=== PATIENT | male | born 1975 | race Caucasian/White ===

== ENCOUNTER 2017-07-30 09:53 | Outpatient (CLI) | payer OTHER | END 2017-07-30 09:54 | disposition home or self-care (01) | LOC: BICMRI 09:53 | PROVIDERS: ATTEND Family Medicine | DX: M47.26 Other spondylosis with radiculopathy, lumbar region (principal); M51.27 Other intervertebral disc displacement, lumbosacral region | CPT/HCPCS: 72148 ==

== ENCOUNTER 2021-07-11 09:33 | Outpatient (CLI) | payer BC | END 2021-07-11 09:34 | disposition home or self-care (01) | LOC: MRI 09:33 | PROVIDERS: ATTEND Specialist | DX: M47.26 Other spondylosis with radiculopathy, lumbar region (principal); M51.27 Other intervertebral disc displacement, lumbosacral region; M48.07 Spinal stenosis, lumbosacral region | CPT/HCPCS: 72148 ==

== ENCOUNTER 2021-11-08 07:45 | Outpatient (CLI) | payer BC ==
[2021-11-08 08:15] LABS: Hemoglobin 16.5 g/dL (13.5-17.5); Mean Corpuscular HGB CONC 34.2 g/dL (32.0-36.0); Mean Corpuscular Hemoglobin 32.4 pg (27.0-33.0); Mean Corpuscular Volume 94.5 fl (81.2-95.1); Platelet Count 197 10x3/uL (150-450); RBC Distribution Width 12.9 % (11.5-14.5); White Blood Cell (WBC) Count 7.7 10x3/uL (3.5-10.5)
[2021-11-08 08:40] LABS: INR-International Normal Ratio 0.9; PTT 30.8 sec (22.0-33.0); Prothrombin Time 9.9 sec (9.5-12.1)
[2021-11-08 08:42] LABS: Anion Gap 18 mmol/L (10-20); BUN (Urea Nitrogen) 11 mg/dL (8.9-20.6); Calc. Creatinine Clearance 0 mL/min (70-130); Calcium 9.5 mg/dL (7.8-10.44); Carbon Dioxide 22 mmol/L (22-29); Chloride 103 mmol/L (98-107); Glucose 96 mg/dL (70-105); Potassium 4.1 mmol/L (3.5-5.1); Sodium 139 mmol/L (136-145)
[2021-11-09 00:47] LABS: SARS-CoV-2 PCR by NAA Not Detected (NotDetected)
== END 2021-11-08 07:46 | disposition home or self-care (01) ==
LOC: LABBT 07:45
PROVIDERS: ATTEND Surgery
DX: Z01.818 Encounter for other preprocedural examination (principal); M51.16 Intervertebral disc disorders with radiculopathy, lumbar region; M48.062 Spinal stenosis, lumbar region with neurogenic claudication; Z20.822 Contact with and (suspected) exposure to COVID-19
CPT/HCPCS: 80048; 85027; 85610; 85730; 93005; 93010; U0003; U0005

== ENCOUNTER 2021-11-11 05:45 | Observation (INO) | payer BC ==
[2021-11-09 10:27] VITALS: BMI 30.8
[2021-11-11] MEDS ORDERED: Thrombin 5000 UNITS/5 ML VIAL ONE (06:59)
[2021-11-11] MEDS ORDERED: Fentanyl 250 MCG/5 ML VIAL ONE (07:09)
[2021-11-11] MEDS ORDERED: ceFAZolin (BATCH) 2 GM/100 ML BAG ONE (07:14)
[2021-11-11] MEDS ORDERED: Midazolam HCl 2 mg/2 ml Vial ONE (07:18)
[2021-11-11] MEDS ORDERED: Ketorolac Tromethamine 30 MG/ML VIAL ONE (07:28)
[2021-11-11] MEDS ORDERED: PHENYLEPHRINE-NS 100 MCG/ML 10 ML SYRINGE ONE (07:28)
[2021-11-11] MEDS ORDERED: PROPOFOL 200 MG/20 ML VIAL ONE (07:28)
[2021-11-11] MEDS ORDERED: Rocuronium Bromide 10 MG/ML (10ML VIAL) ONE (07:28)
[2021-11-11] MEDS ORDERED: Dexamethasone 20 MG/5 ML VIAL ONE (07:28)
[2021-11-11] MEDS ORDERED: Lidocaine 1% PF 5 ML VIAL ONE (07:28)
[2021-11-11] MEDS ORDERED: Glycopyrrolate 0.2 MG/ML 5 ML SYRINGE ONE (07:28)
[2021-11-11] MEDS ORDERED: Ondansetron PF 4 MG/2 ML Vial ONE (07:28)
[2021-11-11] MEDS ORDERED: PACU-Morphine 4MG/ML VIAL SLOW IVP PRN (09:46)
[2021-11-11] MEDS ORDERED: Morphine Sulfate 2 MG/ML SYRINGE SLOW IVP PRN (09:46)
[2021-11-11] MEDS ORDERED: Meperidine HCl/PF 25 MG/ML VIAL SLOW IVP PRN (09:46)
[2021-11-11] MEDS ORDERED: Promethazine HCl 25 MG/ML VIAL IVPB PRN (09:46)
[2021-11-11] MEDS ORDERED: HYDROmorphone 2 MG/ML VIAL SLOW IVP PRN (09:46)
[2021-11-11] MEDS ORDERED: Promethazine HCl 25 MG/ML VIAL IM PRN (09:46)
[2021-11-11] MEDS ORDERED: Ondansetron HCl/PF 4 MG/2 ML Vial IVP PRN (09:46)
[2021-11-11] MEDS ORDERED: Ketorolac Tromethamine 30 MG/ML VIAL IVP PRN (09:46)
[2021-11-11] MEDS ORDERED: Acetaminophen/Codeine 30-300mg Tablet PO PRN (10:03)
[2021-11-11] MEDS ORDERED: traMADol HCl 50 MG TAB PO PRN (10:03)
[2021-11-11] MEDS ORDERED: Acetaminophen 325 MG TAB PO PRN (10:03)
[2021-11-11] MEDS ORDERED: Ondansetron PF 4 MG/2 ML Vial IVP PRN (10:03)
[2021-11-11] MEDS ORDERED: Morphine 2 MG/ML VIAL SLOW IVP PRN (10:03)
[2021-11-11] MEDS ORDERED: hydrALAZINE 20 MG/ML VIAL SLOW IVP PRN (10:06)
[2021-11-11] MEDS ORDERED: tiZANidine HCl 4 MG TAB PO PRN (10:06)
[2021-11-11] MEDS ORDERED: Docusate 100 MG CAP PO PRN (10:06)
[2021-11-11] MEDS ORDERED: Polyethylene Glycol 3350 17 GM Packet PO PRN (10:06)
[2021-11-11] MEDS ORDERED: Fentanyl 100 MCG/2 ML VIAL ONE ×2 (10:16→10:49)
[2021-11-11] MEDS: Sodium Chloride 0.9% 1,000 ML IV SCH ×2 (12:10→23:49)
[2021-11-11] MEDS: HYDROcodone/Acetaminophen 7.5/325 mg Tablet PO PRN ×2 (12:34→20:02)
[2021-11-11] MEDS: ceFAZolin (BATCH) 2 GM in Premix Bag 1 BAG IVPB SCH ×2 (15:54→23:50)
[2021-11-12 05:23] VITALS: TEMP 98.3
[2021-11-12] MEDS: HYDROcodone/Acetaminophen 7.5/325 mg Tablet PO PRN (07:07)
[2021-11-12 08:13] VITALS: BP 145/78
== END 2021-11-12 09:50 | disposition home or self-care (01) ==
LOC: SDC 05:45 → SURG A 11:10
PROVIDERS: ADMIT Surgery; ATTEND Surgery
PROC: 01NB0ZZ Release Lumbar Nerve, Open Approach (ICD-10-PCS; principal; 2021-11-11)
PROC: 0SB20ZZ Excision of Lumbar Vertebral Disc, Open Approach (ICD-10-PCS; 2021-11-11)
PROC: 0SB40ZZ Excision of Lumbosacral Disc, Open Approach (ICD-10-PCS; 2021-11-11)
DX: M48.061 Spinal stenosis, lumbar region without neurogenic claudication (principal); M51.27 Other intervertebral disc displacement, lumbosacral region; M51.16 Intervertebral disc disorders with radiculopathy, lumbar region; Z79.899 Other long term (current) drug therapy
CPT/HCPCS: 76000; 96374; 96376; G0378; J0690; J1100; J1885; J2250; J2405; J2704; J3010; J3370

== ENCOUNTER 2022-03-13 12:25 | Outpatient (CLI) | payer OTHER | END 2022-03-13 12:26 | disposition home or self-care (01) | LOC: TBSIIMAG 12:25 | PROVIDERS: ATTEND Surgery | DX: M47.26 Other spondylosis with radiculopathy, lumbar region (principal); M51.36 Other intervertebral disc degeneration, lumbar region; M51.16 Intervertebral disc disorders with radiculopathy, lumbar region; M51.27 Other intervertebral disc displacement, lumbosacral region; M71.38 Other bursal cyst, other site; Z98.890 Other specified postprocedural states | CPT/HCPCS: 72100; 72148 ==

== ENCOUNTER 2022-07-24 11:18 | Outpatient (CLI) | payer OTHER ==
[2022-07-24 12:56] LABS: Hemoglobin 16.4 g/dL (13.5-17.5); Mean Corpuscular Hemoglobin 32.2 pg (27.0-33.0); Mean Corpuscular Volume 92.1 fl (81.2-95.1); Mean Platelet Volume 9.6 fl (7.4-10.4); Platelet Count 232 10x3/uL (150-450); RBC Distribution Width 12.9 % (11.5-14.5); Red Blood Cell (RBC) Count 5.09 10x6/uL (4.32-5.72); White Blood Cell (WBC) Count 9.8 10x3/uL (3.5-10.5)
[2022-07-24 13:02] LABS: INR-International Normal Ratio 0.9
[2022-07-24 13:09] LABS: Anion Gap 15 mmol/L (10-20); BUN (Urea Nitrogen) 17 mg/dL (8.9-20.6); Calc. Creatinine Clearance 0 mL/min (70-130); Calcium 9.8 mg/dL (7.8-10.44); Carbon Dioxide 25 mmol/L (22-29); Chloride 104 mmol/L (98-107); Estimated GFR 106; Glucose 89 mg/dL (70-105); Potassium 4.1 mmol/L (3.5-5.1); Sodium 140 mmol/L (136-145)
== END 2022-07-24 11:19 | disposition home or self-care (01) ==
LOC: LABBT 11:18
PROVIDERS: ATTEND Surgery
DX: Z01.818 Encounter for other preprocedural examination (principal); M51.16 Intervertebral disc disorders with radiculopathy, lumbar region; M71.30 Other bursal cyst, unspecified site
CPT/HCPCS: 80048; 85027; 85610; 85730; 93005; 93010

== ENCOUNTER 2022-07-27 07:56 | Observation (INO) | payer OTHER ==
[2022-07-26 12:01] VITALS: BMI 32.3
[2022-07-27] MEDS ORDERED: Thrombin 5000 UNITS/5 ML VIAL ONE (09:11)
[2022-07-27] MEDS ORDERED: Vancomycin 1 GM VIAL ONE (09:11)
[2022-07-27] MEDS ORDERED: Sodium Chloride 0.9% 100 ML ONE (09:26)
[2022-07-27] MEDS ORDERED: CEFAZOLIN 2 GM VIAL ONE (09:26)
[2022-07-27 09:37] LABS: SARS-CoV-2 NAA Rapid Test Not Detected (NotDetected)
[2022-07-27] MEDS ORDERED: Fentanyl 250 MCG/5 ML VIAL ONE (10:01)
[2022-07-27] MEDS ORDERED: Dexamethasone 20 MG/5 ML VIAL ONE (10:20)
[2022-07-27] MEDS ORDERED: Ondansetron PF 4 MG/2 ML Vial ONE (10:20)
[2022-07-27] MEDS ORDERED: Lidocaine 1% PF 5 ML VIAL ONE (10:20)
[2022-07-27] MEDS ORDERED: Ketorolac Tromethamine 30 MG/ML VIAL ONE (10:20)
[2022-07-27] MEDS ORDERED: Rocuronium Bromide 10 MG/ML (10ML VIAL) ONE (10:20)
[2022-07-27] MEDS ORDERED: NEOSTIGMINE 3 MG/3 ML SYR 3 MG/3 ML SYRINGE ONE (10:20)
[2022-07-27] MEDS ORDERED: Glycopyrrolate 0.2 MG/ML 5 ML SYRINGE ONE (10:20)
[2022-07-27] MEDS ORDERED: PHENYLEPHRINE-NS 100 MCG/ML 10 ML SYRINGE ONE (10:20)
[2022-07-27] MEDS ORDERED: PROPOFOL 200 MG/20 ML VIAL ONE (10:20)
[2022-07-27] MEDS ORDERED: diphenhydrAMINE 25 MG CAP PO PRN (10:42)
[2022-07-27] MEDS ORDERED: Ketorolac Tromethamine 30 MG/ML VIAL IVP PRN (10:42)
[2022-07-27] MEDS ORDERED: traMADol HCl 50 MG TAB PO PRN (10:42)
[2022-07-27] MEDS ORDERED: Ondansetron PF 4 MG/2 ML Vial IVP PRN (10:42)
[2022-07-27] MEDS ORDERED: Acetaminophen 325 MG TAB PO PRN (10:42)
[2022-07-27] MEDS ORDERED: Morphine 2 MG/ML VIAL SLOW IVP PRN (10:42)
[2022-07-27] MEDS ORDERED: hydrALAZINE 20 MG/ML VIAL SLOW IVP PRN (10:44)
[2022-07-27] MEDS ORDERED: tiZANidine HCl 4 MG TAB PO PRN (10:44)
[2022-07-27] MEDS ORDERED: Fentanyl 100 MCG/2 ML VIAL ONE (14:14)
[2022-07-27] MEDS: Sodium Chloride 0.9% 1,000 ML IV SCH ×2 (15:56→20:30)
[2022-07-27] MEDS ORDERED: FLU VACC QS2022-23(6MOS UP)/PF 60 MCG/0.5 ML SYRINGE IM ONE (16:30)
[2022-07-27] MEDS: CEFAZOLIN 2 GM in Sodium Chloride 0.9% 100 ML IVPB SCH (17:08)
[2022-07-27] MEDS: Acetaminophen/Codeine 30-300mg Tablet PO PRN (17:44)
[2022-07-27] MEDS: Lisinopril/Hydrochlorothiazide 20 mg/12.5 mg Tablet PO SCH (20:30)
[2022-07-27] MEDS: HYDROcodone/Acetaminophen 7.5/325 mg Tablet PO PRN (20:30)
[2022-07-28] MEDS: CEFAZOLIN 2 GM in Sodium Chloride 0.9% 100 ML IVPB SCH (00:15)
[2022-07-28] MEDS: Acetaminophen/Codeine 30-300mg Tablet PO PRN ×2 (00:51→10:21)
[2022-07-28] MEDS: HYDROcodone/Acetaminophen 7.5/325 mg Tablet PO PRN (05:03)
[2022-07-28] MEDS: Lisinopril/Hydrochlorothiazide 20 mg/12.5 mg Tablet PO SCH (07:54)
[2022-07-28] MEDS ORDERED: Amlodipine 5 MG TAB PO SCH (09:00)
[2022-07-28 09:07] VITALS: BP 111/63; TEMP 98
== END 2022-07-28 10:21 | disposition home or self-care (01) ==
LOC: SDC 07:56 → SURG A 10:42
PROVIDERS: ADMIT Surgery; ATTEND Surgery
PROC: 0QB00ZZ Excision of Lumbar Vertebra, Open Approach (ICD-10-PCS; principal; 2022-07-27)
PROC: 01NR0ZZ Release Sacral Nerve, Open Approach (ICD-10-PCS; 2022-07-27)
PROC: 0SB40ZZ Excision of Lumbosacral Disc, Open Approach (ICD-10-PCS; 2022-07-27)
DX: M51.17 Intervertebral disc disorders with radiculopathy, lumbosacral region (principal); M71.38 Other bursal cyst, other site; Z79.899 Other long term (current) drug therapy; Z20.822 Contact with and (suspected) exposure to COVID-19
CPT/HCPCS: 90471; 90686; C1713; G0008; J1100; J1885; J2405; J2704; J3010; J3370; J3490; J7050; U0002

== ENCOUNTER 2023-01-23 08:17 | Outpatient (CLI) | payer OTHER | END 2023-01-23 08:18 | disposition home or self-care (01) | LOC: BICCT 08:17 | PROVIDERS: ATTEND Surgery | DX: M51.26 Other intervertebral disc displacement, lumbar region (principal); M47.816 Spondylosis without myelopathy or radiculopathy, lumbar region; M47.817 Spondylosis without myelopathy or radiculopathy, lumbosacral region; Z98.890 Other specified postprocedural states | CPT/HCPCS: 72120; 72131 ==

== ENCOUNTER 2023-03-06 11:20 | Outpatient (CLI) | payer OTHER | END 2023-03-06 11:21 | disposition home or self-care (01) | LOC: LABBT 11:20 | PROVIDERS: ATTEND Surgery | DX: Z01.818 Encounter for other preprocedural examination (principal); M54.16 Radiculopathy, lumbar region; M48.062 Spinal stenosis, lumbar region with neurogenic claudication | CPT/HCPCS: 93005; 93010 ==

== ENCOUNTER 2023-03-08 05:48 | Inpatient (IN) | payer OTHER ==
[2023-03-06 11:54] VITALS: BMI 29.4
[2023-03-06 12:47] LABS: Hemoglobin 16.1 g/dL (13.5-17.5); Mean Corpuscular Hemoglobin 32.1 pg (27.0-33.0); Mean Corpuscular Volume 91.6 fl (81.2-95.1); Mean Platelet Volume 9.4 fl (7.4-10.4); Platelet Count 208 10x3/uL (150-450); RBC Distribution Width 12.3 % (11.5-14.5); Red Blood Cell (RBC) Count 5.02 10x6/uL (4.32-5.72); White Blood Cell (WBC) Count 9.4 10x3/uL (3.5-10.5)
[2023-03-06 12:55] LABS: PTT 32.6 sec (22.0-33.0); Prothrombin Time 10.3 sec (9.5-12.1)
[2023-03-06 13:00] LABS: Anion Gap 16 mmol/L (10-20); BUN (Urea Nitrogen) 13 mg/dL (8.9-20.6); Calc. Creatinine Clearance 0 mL/min (70-130); Calcium 9.5 mg/dL (7.8-10.44); Carbon Dioxide 25 mmol/L (22-29); Chloride 100 mmol/L (98-107); Estimated GFR 85; Glucose 124 mg/dL (70-105); Potassium 3.5 mmol/L (3.5-5.1); Sodium 137 mmol/L (136-145)
[2023-03-08] MEDS ORDERED: Midazolam HCl 2 mg/2 ml Vial ONE (06:19)
[2023-03-08] MEDS ORDERED: fentaNYL PF 100 MCG/2 ML SYRINGE ONE (06:19)
[2023-03-08] MEDS ORDERED: HYDROmorphone 2 MG/ML VIAL ONE (06:19)
[2023-03-08] MEDS ORDERED: Thrombin 5000 UNITS/5 ML VIAL ONE (06:35)
[2023-03-08] MEDS ORDERED: Vancomycin 1 GM VIAL ONE (06:35)
[2023-03-08] MEDS ORDERED: Sodium Chloride 0.9% 100 ML ONE (07:14)
[2023-03-08] MEDS ORDERED: CEFAZOLIN 2 GM VIAL ONE (07:14)
[2023-03-08] MEDS ORDERED: Ondansetron PF 4 MG/2 ML Vial ONE (07:20)
[2023-03-08] MEDS ORDERED: Lidocaine 1% PF 5 ML VIAL ONE (07:20)
[2023-03-08] MEDS ORDERED: PROPOFOL 200 MG/20 ML VIAL ONE (07:20)
[2023-03-08] MEDS ORDERED: Rocuronium Bromide 10 MG/ML (10ML VIAL) ONE (07:20)
[2023-03-08] MEDS ORDERED: PHENYLEPHRINE-NS 100 MCG/ML 10 ML SYRINGE ONE (07:20)
[2023-03-08] MEDS ORDERED: ePHEDrine Sulfate 50 MG/10 ML VIAL ONE (07:20)
[2023-03-08] MEDS ORDERED: Dexamethasone 20 MG/5 ML VIAL ONE (07:20)
[2023-03-08] MEDS ORDERED: Vecuronium 10 MG VIAL ONE (07:20)
[2023-03-08] MEDS ORDERED: Phenylephrine 10 MG/ML VIAL ONE (09:16)
[2023-03-08] MEDS ORDERED: Ondansetron HCl/PF 4 MG/2 ML Vial IVP PRN (11:48)
[2023-03-08] MEDS ORDERED: Promethazine HCl 25 MG/ML VIAL IM PRN ×3 (11:48→13:01)
[2023-03-08] MEDS ORDERED: Meperidine HCl/PF 25 MG/ML VIAL SLOW IVP PRN (11:48)
[2023-03-08] MEDS ORDERED: HYDROmorphone 2 MG/ML VIAL SLOW IVP PRN (11:48)
[2023-03-08] MEDS ORDERED: SUGAMMADEX SODIUM 200 MG/2 ML VIAL ONE (12:02)
[2023-03-08] MEDS ORDERED: diphenhydrAMINE 50 MG/ML VIAL IVP PRN (12:18)
[2023-03-08] MEDS ORDERED: HYDROmorphone 10 mg/100 ml CADD IVPB PRN (12:18)
[2023-03-08] MEDS ORDERED: diphenhydrAMINE 25 MG CAP PO PRN (12:18)
[2023-03-08] MEDS ORDERED: Naloxone HCl 0.4 mg/ml Vial IV PRN (12:18)
[2023-03-08] MEDS ORDERED: Ondansetron PF 4 MG/2 ML Vial IVP PRN ×2 (12:18→13:01)
[2023-03-08] MEDS ORDERED: diphenhydrAMINE 50 MG/ML VIAL IM PRN (12:18)
[2023-03-08] MEDS ORDERED: ACTIVE PCA FS PRN (12:30)
[2023-03-08] MEDS ORDERED: HYDROmorphone/PF 10 MG in Sodium Chloride 0.9% 99 ML IVPB PRN (12:45)
[2023-03-08] MEDS ORDERED: Acetaminophen 325 MG TAB PO PRN (12:58)
[2023-03-08] MEDS ORDERED: Cyclobenzaprine 10 MG TAB PO PRN (12:58)
[2023-03-08] MEDS ORDERED: hydrALAZINE 20 MG/ML VIAL SLOW IVP PRN (13:01)
[2023-03-08] MEDS ORDERED: fentaNYL 50 mcg/mL 1 mL Vial ONE (13:09)
[2023-03-08] MEDS: Sodium Chloride 0.9% 1,000 ML IV SCH ×2 (13:15→15:37)
[2023-03-08] MEDS: CEFAZOLIN 2 GM in Sodium Chloride 0.9% 100 ML IVPB SCH (15:33)
[2023-03-08] MEDS: Ketorolac Tromethamine 30 MG/ML VIAL IVP SCH (18:03)
[2023-03-08] MEDS: Varenicline Tartrate 0.5 MG TAB PO SCH (20:59)
[2023-03-08] MEDS: Lisinopril/Hydrochlorothiazide 20 mg/12.5 mg Tablet PO SCH (20:59)
[2023-03-09] MEDS: Ketorolac Tromethamine 30 MG/ML VIAL IVP SCH ×2 (00:58→06:00)
[2023-03-09] MEDS: CEFAZOLIN 2 GM in Sodium Chloride 0.9% 100 ML IVPB SCH ×3 (00:59→17:49)
[2023-03-09] MEDS: Sodium Chloride 0.9% 1,000 ML IV SCH (06:03)
[2023-03-09 06:06] LABS: #Monocytes 1.6 thou/uL (0.11-0.59); %Basophils 0.1 % (0.0-1.0); %Lymphocytes 12.9 % (21.0-51.0); %Monocytes 11.2 % (0.0-10.0); %Neutrophils 75.4 % (42.0-75.0); Hematocrit 35.6 % (42.0-52.0); Mean Corpuscular HGB CONC 33.7 g/dL (32.0-36.0); Mean Corpuscular Hemoglobin 32.5 pg (27.0-31.0); Mean Corpuscular Volume 96.5 fl (78.0-98.0); Mean Platelet Volume 8.9 fL (7.4-10.4); Platelet Count 152 10x3/uL (130-400); RBC Distribution Width 12.3 % (11.5-14.5); Red Blood Cell (RBC) Count 3.69 mill/uL (4.70-6.10); White Blood Cell (WBC) Count 14.6 10x3/uL (4.8-10.8)
[2023-03-09 06:32] LABS: Anion Gap 8 mmol/L (10-20); BUN (Urea Nitrogen) 10 mg/dL (8.9-20.6); Calc. Creatinine Clearance 149 mL/min (70-130); Calcium 8.3 mg/dL (7.8-10.44); Carbon Dioxide 27 mmol/L (22-29); Chloride 103 mmol/L (98-107); Estimated GFR 109; Glucose 107 mg/dL (70-105); Potassium 3.7 mmol/L (3.5-5.1); Sodium 134 mmol/L (136-145)
[2023-03-09] MEDS ORDERED: Acetaminophen/Codeine 30-300mg Tablet PO PRN (08:19)
[2023-03-09] MEDS ORDERED: HYDROcodone/Acetaminophen 5/325 mg Tablet PO PRN (08:19)
[2023-03-09] MEDS ORDERED: Morphine 2 MG/ML VIAL SLOW IVP PRN (08:20)
[2023-03-09] MEDS: Amlodipine 5 MG TAB PO SCH (09:21)
[2023-03-09] MEDS: Lisinopril/Hydrochlorothiazide 20 mg/12.5 mg Tablet PO SCH ×2 (09:21→21:22)
[2023-03-09] MEDS: Varenicline Tartrate 0.5 MG TAB PO SCH ×2 (09:42→21:22)
[2023-03-10] MEDS: CEFAZOLIN 2 GM in Sodium Chloride 0.9% 100 ML IVPB SCH ×3 (00:10→17:15)
[2023-03-10] MEDS: HYDROcodone/Acetaminophen 10/325 mg Tablet PO PRN ×2 (04:35→16:42)
[2023-03-10] MEDS: Sodium Chloride 0.9% 1,000 ML IV SCH (08:12)
[2023-03-10] MEDS: Varenicline Tartrate 0.5 MG TAB PO SCH (08:50)
[2023-03-10] MEDS: Amlodipine 5 MG TAB PO SCH (08:50)
[2023-03-10] MEDS: Lisinopril/Hydrochlorothiazide 20 mg/12.5 mg Tablet PO SCH (08:50)
[2023-03-10 16:04] VITALS: BP 112/71; TEMP 98.2
== END 2023-03-10 18:18 | disposition home or self-care (01) | DRG 455 ==
LOC: SDC 05:48 → SURG B 12:55 → OBSVTOIN 03-09 14:50
PROVIDERS: ADMIT Surgery; ATTEND Surgery
PROC: 0SG00A0 Fusion of Lumbar Vertebral Joint with Interbody Fusion Device, Anterior Approach, Anterior Column, Open Approach (ICD-10-PCS; principal; 2023-03-08)
PROC: 0SG0071 Fusion of Lumbar Vertebral Joint with Autologous Tissue Substitute, Posterior Approach, Posterior Column, Open Approach (ICD-10-PCS; 2023-03-08)
PROC: 0SG30A0 Fusion of Lumbosacral Joint with Interbody Fusion Device, Anterior Approach, Anterior Column, Open Approach (ICD-10-PCS; 2023-03-08)
PROC: 0SG3071 Fusion of Lumbosacral Joint with Autologous Tissue Substitute, Posterior Approach, Posterior Column, Open Approach (ICD-10-PCS; 2023-03-08)
PROC: 0SB20ZZ Excision of Lumbar Vertebral Disc, Open Approach (ICD-10-PCS; 2023-03-08)
PROC: 0SB40ZZ Excision of Lumbosacral Disc, Open Approach (ICD-10-PCS; 2023-03-08)
DX: M54.17 Radiculopathy, lumbosacral region (principal); M71.38 Other bursal cyst, other site
CPT/HCPCS: 36415; 51701; 80048; 85025; 85027; 85610; 85730; 86850; 86900; 86901; 96365; 96375; 96376; A4314; C1713; C1889; G0378; J1100; J1170; J1885; J2250; J2370; J2405; J2704; J3010; J3370; J3490; J7050